=== PATIENT | female | born 2000 | race Caucasian/White ===

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

== ENCOUNTER 2023-02-05 10:31 | Outpatient (REF) | payer BC, SELFPAY ==
[2023-02-06 14:13] LABS: Chlamydia Result Negative (Negative); GC Result Negative (Negative)
== END 2023-02-05 10:32 | disposition home or self-care (01) ==
LOC: LBN 10:31
PROVIDERS: PCP Specialist/Technologist Athletic Trainer; Visit Provider Nurse Practitioner Women's Health
DX: Z11.3 Encounter for screening for infections with a predominantly sexual mode of transmission (principal)
CPT/HCPCS: 87491; 87591

== ENCOUNTER 2024-03-31 11:38 | Outpatient (REF) | payer OTHER, SELFPAY ==
--- NOTE | 2024-03-31 11:00 | PAPFT_PTH ---
PATIENT: Belinda Preston LOC: [facility] U#:[id number] AGE/SX: 23/F ROOM: RE03/31/[address]: Nesha Vazquez NP : 2000 BED: DIS: 03/31/2024 SPEC #: [id number] RECD: 03/31/24 18:33 STATUS: JACKIE REJuice #: [id number] FRANKIE: 03/31/24 11:[address]: Nesha Vazquez NP DEPT: [facility] Cytology RECD BY: Rashida Fontenot ENTERED: 03/31/24 18:33 SP TYPE: PAPFT OTHR DR: Yaneth Weldon Tissues: 1 - CX/ENDOCX FOR PAP SMEARS Procedures: PAP THIN PREP/[facility] Screening Comments: [id number] (CHLAMYDIA/GC)
[2024-04-01 12:49] LABS: Chlamydia Result Negative (Negative); GC Result Negative (Negative)
== END 2024-03-31 11:39 | disposition home or self-care (01) ==
LOC: LBN 11:38
PROVIDERS: PCP Nurse Practitioner Family; Visit Provider Nurse Practitioner Women's Health
DX: Z12.4 Encounter for screening for malignant neoplasm of cervix (principal)
CPT/HCPCS: 87491; 87591; 88142